=== PATIENT | female | born 1950 | race Caucasian/White ===

== ENCOUNTER 2023-02-17 10:00 | Outpatient (OUT) | payer MEDICARE, SELFPAY ==
[2023-02-17 10:20] LABS: Basophils Absolute Auto 0.1 10^3/uL (0.0-0.1); Basophils Percent Auto 1.1 % (0.2-2.0); Eosinophils Absolute Auto 0.3 10^3/uL (0.0-0.7); Eosinophils Percent Auto 3.4 % (0.9-7.0); Hematocrit 40.2 % (36.0-48.0); Hemoglobin 13.3 g/dL (12.0-16.0); Immature Granulocytes Abs Auto 0.01 10^3/uL (0.00-0.03); Immature Granulocytes Pct Auto 0.1 % (0.0-0.5); Lymphocytes Absolute Auto 2.1 10^3/uL (1.2-3.8); Lymphocytes Percent Auto 28.1 % (20.5-60.0); Mean Corpuscular HGB Conc 33.1 g/dL (29.9-35.2); Mean Corpuscular Hemoglobin 28.1 pg (26.7-34.0); Mean Platelet Volume 11.1 fL (9.5-13.5); Monocytes Absolute Auto 0.6 10^3/uL (0.3-0.8); Monocytes Percent Auto 8.2 % (1.7-12.0); Neutrophils Absolute Auto 4.3 10^3/uL (1.4-6.5); Neutrophils Percent Auto 59.1 % (43.0-75.0); Platelet Count 210 10^3/uL (150-450); Red Blood Count 4.73 10^6/uL (4.20-5.40); Red Cell Distribution Width 13.9 % (11.0-15.0); White Blood Count 7.3 10^3/uL (4.0-11.0)
[2023-02-17 10:25] LABS: Estimated Average Glucose 117 mg/dL; Glycohemoglobin A1C 5.7 % (4.5-6.2)
[2023-02-17 11:47] LABS: Alanine Aminotransferase 20 U/L (14-59); Albumin Level 3.5 g/dL (3.4-5.0); Alkaline Phosphatase 88 U/L (46-116); Aspartate Amino Transferase 13 U/L (15-37); BUN Creatinine Ratio 22.4; Bilirubin Total 0.7 mg/dL (0.2-1.0); Calcium 9.3 mg/dL (8.5-10.1); Carbon Dioxide 29.8 mmol/L (21.0-32.0); Chloride 107 mmol/L (98-107); Chol HDL Ratio 3.2; Cholesterol 193 mg/dL (<=200); Estimated GFR (African America >60 (>=60); Estimated GFR (Non-African Ame >60 (>=60); Globulin 3.5 g/dL; Glucose 108 mg/dL (74-106); HDL Cholesterol 61 mg/dL (40-60); Potassium 3.8 mmol/L (3.5-5.1); Sodium 144 mmol/L (136-145); Thyroid Stimulating Hormone 0.772 uIU/mL (0.358-3.740); Triglycerides 137 mg/dL (<=150); VLDL CHOLESTEROL 27.4 mg/dL
== END 2023-02-17 10:01 | disposition home or self-care (01) ==
LOC: LAB 10:01
PROVIDERS: PCP Internal Medicine; Visit Provider Internal Medicine
DX: R53.83 Other fatigue (principal); I10 Essential (primary) hypertension; Z79.899 Other long term (current) drug therapy; E78.00 Pure hypercholesterolemia, unspecified; R73.01 Impaired fasting glucose
CPT/HCPCS: 36415; 80053; 80061; 82607; 83036; 84443; 85025

== ENCOUNTER 2023-03-11 09:25 | Outpatient (OUT) | payer MEDICARE, SELFPAY ==
--- OUTSIDE RECORDS SUMMARY | 2023-03-11 09:40 | XMS_ITS | CCD ---
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 Role Phone VITALIY HEARN Primary Care Physician REQUEST, DR BALDWIN LISTED Admitting Unavaila ble REQUEST, DR BALDWIN LISTED Consulting Unavaila ble REQUEST, DR BALDWIN LISTED Attending Unavaila ble BALL, DR EVANS Primary Care Unavailable MARC, DR EVANS Consulting Unavailable MARC, DR EVANS Attending Unavailable MARC, DR EVANS Admitting Unavailable MARC, DR EVANS Primary Care Unavailable Vitaliy Hearn Unavailable Caprice Moses Unavailable Colt Noland Referring Unavailable Colt Noland Attending Unavailable Colt Noland Admitting Unavailable Allergies Allergy Classification Reported Allergen(s) Allergy Type Date of Onset Reaction(s) Facility (1 source) No Known Medication Allergies; Translations: [No Known Medication Allergies] Propensity to adverse reactions (disorder) [facility] Repository Medications Current Medications Medication Drug Class(es) Dates Sig (Normalized) Sig (Original) amLODIPine 5 mg oral tablet (6 sources) Dihydropyridine Calcium Channel Kat Start: 08-22-2021 take 1 tablet by mouth every twenty-four hours amLODIPine Besylate 5 MG 1 tablet Orally Once a day Aug, Active aspirin 81 mg delayed release oral tablet (6 sources) Platelet Aggregation Inhibitor, Nonsteroidal Anti-inflammatory Drug Start: 02-11-2022 Aspirin Adult Low Dose 81 MG aspirin( 81mg oral 1 daily ) Active -Hx Entry Oral daily for 0 Feb, Active atorvastatin 20 mg oral tablet (6 sources) HMG-CoA Reductase Inhibitor Start: 12-12-2021 take 1 tablet by mouth once daily in the evening atorvastatin 20mg atorvastatin 20mg, 1 (one) Tablet Tablet daily in evening # 90, 12/12/2021, Ref. x3. Active oral daily in evening for 0 *Reorder from [employer] for eRx and Interaction Alerts* Dec, Active carvedilol 12.5 mg oral tablet (6 sources) alpha-Adrenergic Kat, beta-Adrenergic Kat Start: 08-29-2021 take 1 tablet by mouth every twelve hours Carvedilol 12.5 MG 1 tablet with food Orally Twice a day Aug, Active cholecalciferol 0.05 mg oral tablet (4 sources) Vitamin D Vitamin D 50 MCG (1999 UT) 2 Orally Once a day Active PARoxetine mesylate 30 mg oral tablet (6 sources) Serotonin Reuptake Inhibitor Start: 02-11-2022 PARoxetine HCl 30mg PARoxetine HCL( 30mg oral 1 daily ) Active -Hx Entry oral daily for 0 *Pick strength-form from [employer] for eRX* Feb, Active take 1 tablet by aravind th every twenty-four hours PARoxetine HCl 30 MG 1 tablet in the morning Orally Once a day Active Problems Active Problems Problem Classification Problem Date Documented Date Episodic/Chronic Anxiety disorders (7 sources) Generalized anxiety disorder; Translations: [Generalized anxiety disorder] Onset: 06-09-2018 Chronic Diabetes mellitus without complication (1 source) Impaired fasting glucose Episodic Disorders of lipid metabolism (12 sources) Familial hypercholesterolemia; Translations: [Hypercholesterolemia ] Onset: 01-01-2015 Chronic Esophageal disorders (2 sources) Gastro-esophageal reflux disease with esophagitis; Translations: [Gastro-esophageal reflux disease with esophagitis, without bleeding] Onset: 06-10-2017 Chronic Essential hypertension (14 sources) Essential (primary) hypertension; Translations: [Essential hypertension] Onset: 01-01-2015 Chronic Immunizations and screening for infectious disease (2 sources) Vaccination given; Translations: [Encounter for immunization] Episodic Malaise and fatigue (3 sources) Malaise and fatigue; Translations: [Other malaise and fatigue] Onset: 01-14-2018 Episodic Nutritional deficiencies (6 sources) Vitamin D deficiency; Translations: [Vitamin D deficiency, unspecified] Chronic Osteoarthritis (15 sources) Primary gonarthrosis, bilateral; Translations: [Bilateral primary osteoarthritis of knee] Onset: 01-14-2018 Chronic Other aftercare (2 sources) Other skilled nursing (current) drug therapy; Translations: [OTH INTERMEDIATE CURRENT DRUG THERAPY] Onset: 02-17-2022 Episodic Other aftercare (2 sources) Long-term current use of drug therapy; Translations: [Other terminal block assembler (current) drug therapy] Episodic Other circulatory disease (2 sources) Raynaud's disease; Translations: [Raynaud's syndrome without gangrene] Chronic Other circulatory disease (2 sources) Peripheral vascular disease; Translations: [Other specified peripheral vascular diseases] Onset: 05-25-2018 Chronic Other circulatory disease (2 sources) Arteritis; Translations: [Arteritis, unspecified] Onset: 05-27-2018 Chronic Other congenital anomalies (2 sources) Congenital spondylolysis of lumbosacral region; Translations: [Congenital spondylolysis, lumbosacral region] Onset: 07-10-2017 Chronic Other connective tissue disease (3 sources) History of total replacement of right hip joint; Translations: [Presence of right artificial hip joint] Chronic Other connective tissue disease (1 source) Presence of right artificial hip joint Chronic Other injuries and conditions due to external causes (2 sources) History of fall; Translations: [History of falling] Episodic Other non-traumatic joint disorders (2 sources) Lower limb joint arthritis; Translations: [Osteoarthrosis, unspecified whether generalized or localized, lower leg] Onset: 01-01-2015 Chronic Other nutritional; endocrine; and metabolic disorders (6 sources) Body mass index 30+ - obesity; Translations: [Body mass index (BMI) 30.0-30.9, adult] Onset: 01-08-2016 Chronic Other nutritional; endocrine; and metabolic disorders (4 sources) Obesity caused by energy imbalance; Translations: [Other obesity due to excess calories] Chronic Other nutritional; endocrine; and metabolic disorders (1 source) Other obesity due to excess calories Chronic Other nutritional; endocrine; and metabolic disorders (1 source) Body mass index (BMI) 30.0-30.9, adult Chronic Other nutritional; endocrine; and metabolic disorders (2 sources) Obesity; Translations: [Obesity, unspecified] Chronic Other nutritional; endocrine; and metabolic disorders (2 sources) Simple obesity ; Translations: [Other obesity due to excess calories] Onset: 01-08-2016 Chronic Other nutritional; endocrine; and metabolic disorders (2 sources) Obese class I; Translations: [Body mass index 34.0-34.9, adult] Onset: 01-08-2016 Chronic Other nutritional; endocrine; and metabolic disorders (4 sources) Hyperuricemia; Translations: [Hyperuricemia without signs of inflammatory arthritis and tophaceous disease] Episodic Other nutritional; endocrine; and metabolic disorders (2 sources) Hyperuricemia without signs of inflammatory arthritis and tophaceous disease; Translations: [Hyperuricemia without signs of inflammatory arthritis and tophaceous disease] Episodic Other nutritional; endocrine; and metabolic disorders (2 sources) Overweight; Translations: [Overweight] Episodic Other screening for suspected conditions (not mental disorders or infectious disease) (2 sources) Encounter for screening for diseases of the blood and blood-forming organs and certain disorders involving the immune mechanism; Translations: [Encntr screen for dis of the bld/bld-form org/immun mechnsm] Episodic Other upper respiratory disease (2 sources) Seasonal allergic rhinitis; Translations: [Other seasonal allergic rhinitis] Onset: 06-10-2017 Chronic Superficial injury; contusion (2 sources) Contusion of right hip, initial encounter Episodic Unclassified (2 sources) Long-term current use of drug therapy; Translations: [Long-term (current) use of other medications] Onset: 01-13-2017 Past or Other Problems Problem Classification Problem Date Documented Date Episodic/Chronic Acute posthemorrhagic anemia (2 sources) Acute posthemorrhagic anemia; Translations: [Acute posthemorrhagic anemia] Resolved: 07-04-2019 Episodic Other connective tissue disease (2 sources) Trochanteric bursitis of right hip; Translations: [Trochanteric bursitis, right hip] Onset: 06-10-2017 Episodic Other lower respiratory disease (2 sources) Cyanosis; Translations: [Cyanosis] Onset: 05-25-2018 Episodic Other nervous system disorders (2 sources) Paresthesia; Translations: [Paresthesia of skin] Onset: 06-10-2017 Episodic Other non-traumatic joint disorders (2 sources) Arthralgia of the pelvic region and thigh; Translations: [Pain in joint, pelvic region and thigh] Onset: 06-10-2017 Episodic Other non-traumatic joint disorders (2 sources) Arthralgia of the lower leg; Translations: [Pain in joint, lower leg] Onset: 01-01-2015 Episodic Residual codes; unclassified (2 sources) Requires influenza virus vaccination; Translations: [Need for prophylactic vaccination and inoculation, Influenza] Onset: 01-14-2018 Episodic Results Test Name Value Interpretation Reference Range Facility Consent for Treatmenton Consent for Treatment [id number] .[id number]:127 Normal [facility] MA Mamm Screen w/CAD if perf and 3D Bilon 12-08-2022 MA Mamm Screen w/CAD if perf and 3D Gerard Exam Date/Time: 12/08/2022 08:30 EDT Reason for Exam: Z12.31 Report IMPRESSION: BIRADS 1 NEGATIVE, NORMAL INTERVAL FOLLOW-UP Follow-up: 12 MONTH RECALL Dense Breast: No Scattered tissue EXAM: MA Mamm Screen w/CAD if perf and 3D Gerard DATE: 12/08/2022 7:25 AM CLINICAL HISTORY: Z12.31. COMPARISONS: May 28, 2018 through November 21, 2021. TECHNIQUE: Routine full-field digital mammograms and 3D breast tomosynthesis of both breasts were obtained. FINDINGS: Scattered fibroglandular densities are present with stable asymmetry. There are no developing masses, suspicious microcalcifications, or areas of architectural distortion identified on the current study. No significant changes are identified from the prior studies, given differences in technique and positioning. CAD analysis was performed and used in the interpretation. Board Certified Radiologists. Accredited by the ACR and FDA. MAMMOGRAPHY IS VERY IMPORTANT TO YOUR HEALTH. THE CURRENT [place] [employer] GUIDELINES RECOMMENDS ANNUAL MAMMOGRAPHY BEGINNING AT AGE 40. THIS FACILITY UTILIZES A REMINDER SYSTEM TO ENSURE ALL PATIENTS RECEIVE REMINDER NOTIFICATIONS AT THE APPROPRIATE TIME BASED ON THE RECOMMENDATIONS OF THIS EXAM. Report Ordering Provider: Colt Noland FINAL REPORT Dictated: 12/08/2022 6:23 pm Ruth Mendez Signed (Electronic Signature): 12/08/2022 6:23 pm Signed by: Ruth Mendez Transcribed by: LINDA Technologist: [facility] Assessment: BI-RADS Category 1-Negative Recommendation: Normal interval follow-up Normal [facility] Physician Orderon 11-20-2022 Physician Order [id number] .[id number]:127 Normal [facility] GLYCOHEMOGLOBIN A1Con 2022 ADA RECOMMENDATION SEE BELOW Normal [facility] Comment on above: Result Comment: ADA RECOMMENDED LIMIT 4.0 - 6.0 ADA THERAPEUTIC TARGET < 7.0 ACTION SUGGESTED > 7.0 Performed By: #### D ATA1C #### [facility] [address] [place] [address] Dr. Abimael Yu Glucose [Mass/Vol] 114 mg/dL Normal [facility] Comment on above: Performed By: #### D ATA1C #### [facility] [address] [place] [address] Dr. Abimael Yu HbA1c (Bld) [Mass fraction] 5.6 % Normal 4.5-6.2 [facility] Comment on above: Performed By: #### D ATA1C #### [facility] [address] [place] [address] Dr. Abimael Yu CBC AUTO DIFFon 02-13-2022 BASO # 0.1 103/ul Normal 0.0-0.1 [facility] Comment on above: Performed By: #### C BC #### [facility] [address] [place] [address] Dr. Abimael Yu Basophils/100 WBC (Bld) 1.1 % Normal 0.2-2.0 [facility] Comment on above: Performed By: #### C BC #### [facility] [address] [place] [address] Dr. Abimael Yu EO # 0.3 103/ul Normal 0.0-0.7 [facility] Comment on above: Performed By: #### C BC #### [facility] [address] [place] [address] Dr. Abimael Yu Eosinophils/100 WBC (Bld) 4.0 % Normal 0.9-7.0 [facility] Comment on above: Performed By: #### C BC #### [facility] [address] [place] [address] Dr. Abimael Yu Erythrocyte distribution width (RBC) [Ratio] 13.4 % Normal 11.0-15.0 [facility] Comment on above: Performed By: #### C BC #### [facility] [address] [place] [address] Dr. Abimael Yu Hematocrit (Bld) [Volume fraction] 42.3 % Normal 36.0-48.0 [facility] Comment on above: Performed By: #### C BC #### [facility] [address] [address] [address] Abimael Yu Hemoglobin (Bld) [Mass/Vol] 14.5 g/dL Normal 12.0-16.0 [facility] Comment on above: Performed By: #### C BC #### [facility] [address] [address] [address] Abimael Yu IG # 0.01 10e3/ul Normal 0.00-0.03 [facility] Comment on above: Performed By: #### C BC #### [facility] [address] [place] [address] Dr. Abimael Yu IG % 0.2 % Normal 0.0-0.5 [facility] Comment on above: Performed By: #### C BC #### [facility] [address] [place] [address] Dr. Abimael Yu LYMPH # 1.9 103/ul Normal 1.2-3.8 [facility] Comment on above: Performed By: #### C BC #### [facility] [address] [place] [address] Dr. Abimael Yu Lymphocytes/100 WBC (Bld) 30.8 % Normal 20.5-60.0 [facility] Comment on above: Performed By: #### C BC #### [facility] [address] [place] [address] Dr. Abimael Yu MANUAL DIFF REQ NO Normal [facility] Comment on above: Performed By: #### C BC #### [facility] [address] [place] [address] Dr. Abimael Yu MCH (RBC) [Entitic mass] 30.0 pg Normal 26.7-34.0 [facility] Comment on above: Performed By: #### C BC #### [facility] [address] [place] [address] Dr. Abimael Yu MCHC (RBC) [Mass/Vol] 34.3 g/dL Normal 29.9-35.2 [facility] Comment on above: Performed By: #### C BC #### [facility] [address] [address] [address] Abimael Yu MCV (RBC) [Entitic vol] 87.4 fL Normal 81.0-99.0 [facility] Comment on above: Performed By: #### C BC #### [facility] [address] [address] [address] Abimael Yu MONO # 0.4 103/ul Normal 0.3-0.8 [facility] Comment on above: Performed By: #### C BC #### [facility] [address] [address] [address] Abimael Yu Monocytes/100 WBC (Bld) 6.3 % Normal 1.7-12.0 [facility] Comment on above: Performed By: #### C BC #### [facility] [address] [place] [address] Dr. Abimael Yu NEUT # 3.6 103/ul Normal 1.4-6.5 [facility] Comment on above: Performed By: #### C BC #### [facility] [address] [place] [address] Dr. Abimael Yu Neutrophils/100 WBC (Bld) 57.6 % Normal 43.0-75.0 [facility] Comment on above: Performed By: #### C BC #### [facility] [address] [place] [address] Dr. Abimael Yu Platelet mean volume (Bld) [Entitic vol] 10.9 fL Normal 9.5-13.5 [facility] Comment on above: Performed By: #### C BC #### [facility] [address] [place] [address] Dr. Abimael Yu PLT 202 103/ul Normal 150-450 [facility] Comment on above: Performed By: #### C BC #### [facility] [address] [place] [address] Dr. Abimael Yu RBC 4.84 106/ul Normal 4.20-5.40 [facility] Comment on above: Performed By: #### C BC #### [facility] [address] [address] [address] Abimael Yu WBC 6.2 103/ul Normal 4.0-11.0 [facility] Comment on above: Performed By: #### C BC #### [facility] [address] [address] [address] Abimael Yu LIPID PROFILEon 02-13-2022 CHOL-HDL RATIO NORM SEE BELOW Normal [facility] Comment on above: Result Comment: 3.3 - 4.4 LOW RISK 4.4 - 7.1 AVERAGE RISK 7.1 - 11.0 MODERATE RISK >11.0 HIGH RISK Performed By: #### C MP, LIPID #### [facility] [address] [address] [address] Abimael Yu Cholesterol [Mass/Vol] 153 mg/dL Normal <=200 [facility] Comment on above: Performed By: #### C MP, LIPID #### [facility] [address] [address] [address] Abimael Yu Cholesterol in HDL [Mass/Vol] 55 mg/dL Normal 40-60 [facility] Comment on above: Performed By: #### C MP, LIPID #### [facility] [address] [address] [address] Abimael Yu Cholesterol in LDL [Mass/Vol] 66.2 mg/dL Normal [facility] Comment on above: Performed By: #### C MP, LIPID #### [facility] [address] [address] [address] Abimael Yu Cholesterol.total/Cho lesterol in HDL [Mass ratio] 2.8 {ratio} Normal [facility] Comment on above: Performed By: #### C MP, LIPID #### [facility] [address] [address] [address] Abimael Yu HDL NORMAL > or = 60 mg/dl - LO W CARDIOVASCULAR RISK <40 mg/dl - HIGH CARDIOVASCULAR RISK Normal [facility] Comment on above: Performed By: #### C MP, LIPID #### [facility] [address] [address] [address] Abimael Yu LDL CALC NORMAL SEE BELOW Normal [facility] Comment on above: Result Comment: <100 mg/dl OPTIMAL 100 - 129 mg/dl NEAR OR ABOVE OPTIMAL 130 - 159 mg/dl BORDERLINE HIGH 160 - 189 mg/dl HIGH >190 mg/dl VERY HIGH Performed By: #### C MP, LIPID #### [facility] [address] [address] [address] Abimael Yu Triglyceride [Mass/Vol] 159 mg/dL Critically high <=150 [facility] Comment on above: Performed By: #### C MP, LIPID #### [facility] [address] [address] [address] Abimael Yu VLDL CALC 31.8 mg/dL Normal [facility] Comment on above: Performed By: #### C MP, LIPID #### [facility] [address] [address] [address] Abimael Yu PROF 14(COMP METB)on 022 Albumin [Mass/Vol] 3.4 g/dL Normal 3.4-5.0 [facility] Comment on above: Performed By: #### C MP, LIPID #### [facility] [address] [address] [address] Abimael Yu Albumin/Globulin [Mass ratio] 1.0 {ratio} Normal [facility] Comment on above: Performed By: #### C MP, LIPID #### [facility] [address] [place] [address] Dr. Abimael Yu ALP [Catalytic activity/Vol] 111 U/L Normal 46-116 [facility] Comment on above: Performed By: #### C MP, LIPID #### [facility] [address] [place] [address] Dr. Abimael Yu ALT [Catalytic activity/Vol] 32 U/L Normal 14-59 [facility] Comment on above: Performed By: #### C MP, LIPID #### [facility] [address] [place] [address] Dr. Abimael Yu Anion gap [Moles/Vol] 8.1 mmol/L Normal [facility] Comment on above: Performed By: #### C MP, LIPID #### [facility] [address] [address] [address] Abimael Yu AST [Catalytic activity/Vol] 14 U/L Critically low 15-37 [facility] Comment on above: Performed By: #### C MP, LIPID #### [facility] [address] [place] [address] Dr. Abimael Yu Bilirubin [Mass/Vol] 0.6 mg/dL Normal 0.2-1.0 [facility] Comment on above: Performed By: #### C MP, LIPID #### [facility] [address] [place] [address] Dr. Abimael Yu Calcium [Mass/Vol] 9.3 mg/dL Normal 8.5-10.1 [facility] Comment on above: Performed By: #### C MP, LIPID #### [facility] [address] [place] [address] Dr. Abimael Yu Chloride [Moles/Vol] 107 mmol/L Normal 98-107 [facility] Comment on above: Performed By: #### C MP, LIPID #### [facility] [address] [place] [address] Dr. Abimael Yu CO2 [Moles/Vol] 29.0 mmol/L Normal 21.0-32.0 [facility] Comment on above: Performed By: #### C MP, LIPID #### [facility] [address] [place] [address] Dr. Abimael Yu Creatinine [Mass/Vol] 0.64 mg/dL Normal 0.55-1.02 [facility] Comment on above: Performed By: #### C MP, LIPID #### [facility] [address] [place] [address] Dr. Abimael Yu EGFR-AF [place] >60 Normal >=60 [facility] Comment on above: Performed By: #### C MP, LIPID #### [facility] [address] [place] [address] Dr. Abimael Yu EGFR-NON AF [place] >60 Normal >=60 [facility] Comment on above: Performed By: #### C MP, LIPID #### [facility] [address] [place] [address] Dr. Abimael Yu Globulin (S) [Mass/Vol] 3.3 g/dL Normal [facility] Comment on above: Performed By: #### C MP, LIPID #### [facility] [address] [place] [address] Dr. Abimael Yu Glucose [Mass/Vol] 118 mg/dL Critically high 74-106 [facility] Comment on above: Performed By: #### C MP, LIPID #### [facility] [address] [place] [address] Dr. Abimael Yu Potassium [Moles/Vol] 4.1 mmol/L Normal 3.5-5.1 [facility] Comment on above: Performed By: #### C MP, LIPID #### [facility] [address] [place] [address] Dr. Abimael Yu Protein [Mass/Vol] 6.7 g/dL Normal 6.4-8.2 [facility] Comment on above: Performed By: #### C MP, LIPID #### [facility] [address] [place] [address] Dr. Abimael Yu Sodium [Moles/Vol] 140 mmol/L Normal 136-145 [facility] Comment on above: Performed By: #### C MP, LIPID #### [facility] [address] [place] [address] Dr. Abimael Yu Urea nitrogen [Mass/Vol] 14.0 mg/dL Normal 7.0-18.0 [facility] Comment on above: Performed By: #### C MP, LIPID #### [facility] [address] [place] [address] Dr. Abimael Yu Urea nitrogen/Creatinine [Mass ratio] 21.9 mg/mg Normal [facility] Comment on above: Performed By: #### C MP, LIPID #### [facility] [address] [place] [address] Dr. Abimael Yu Vital Signs Date Time Vital Sign Value Performing Clinician Facility 10-14-2022 09:45-0400 Body height 157.48 cm Vitaliy Ball Other [facility] Other 10-14-2022 09:45-0400 Body mass index (BMI) [Ratio] 31.27 kg/m2 Vitaliy Ball Other [facility] Other 10-14-2022 09:45-0400 Body weight 77.57 kg Vitaliy Ball Other [facility] Other 10-14-2022 09:45-0400 Diastolic blood pressure 78 mm[Hg] Vitaliy Ball Other [facility] Other 10-14-2022 09:45-0400 Respiratory rate 12 /min Vitaliy Ball Other [facility] Other 10-14-2022 09:45-0400 Systolic blood pressure 118 mm[Hg] Vitaliy Ball Other [facility] Other 09-03-2022 11:30-0400 Body height 157.48 cm Vitaliy Ball Other [facility] Other 09-03-2022 11:30-0400 Body mass index (BMI) [Ratio] 31.6 kg/m2 Vitaliy Ball Other [facility] Other 09-03-2022 11:30-0400 Body weight 78.38 kg Vitaliy Ball Other [facility] Other 09-03-2022 11:30-0400 Diastolic blood pressure 80 mm[Hg] Vitaliy Ball Other [facility] Other 09-03-2022 11:30-0400 Respiratory rate 12 /min Vitaliy Ball Other [facility] Other 09-03-2022 11:30-0400 Systolic blood pressure 130 mm[Hg] Vitaliy Ball Other [employer] Other Encounters Encounter Date Encounter Type Care Provider Facility Start: 02-16-2023 End: 02-16-2023 ambulatory Vitaliy Hearn Other [employer] Other Start: 02-16-2023 Office outpatient vi sit 15 minutes Vitaliy Marc [facility] Start: 12-08-2022 End: 12-09-2022 ambulatory Colt Noland Facility:[facility] [place] Start: 12-08-2022 End: 12-08-2022 Patient encounter procedure Colt Bolanos Nuz[facility] Start: 11-28-2022 End: 11-28-2022 ambulatory Caprice Moses Other [employer] Other Start: 11-28-2022 Telephone encounter Caprice Moses [facility] Start: 10-14-2022 End: 10-14-2022 ambulatory Vitaliy Hearn Other [employer] Other Start: 10-14-2022 Office outpatient vi sit 15 minutes Vitaliy Hearn [facility] Start: 09-03-2022 End: 09-03-2022 ambulatory Vitaliy Hearn Other [employer] Other Start: 09-03-2022 Office outpatient vi sit 25 minutes Vitaily Hearn [facility] Start: 05-08-2022 End: 05-09-[address] BALDWIN LISTED REQUEST Facility:[facility] Start: 02-13-2022 End: 02-14-[address] VITALIY HEARN Facility:[facility] Start: 02-11-2022 Adult health examination Caprice Moses Other [employer] Other Start: 11-21-2021 End: 11-21-2021 Patient encounter procedure Colt Bolanos Nuzhat [facility] Procedures Date Procedure Procedure Detail Performing Clinician Start: 06-30-2018 Total replacement of hip Caprice Moses Other Start: 06-09-2018 Preoperative cardiov ascular examination Caprice Moses Other Start: 01-01-2015 General examination of patient Caprice Moses Other Depression screening Caprice Moses Other Screening for malign ant neoplasm of colon Caprice Moses Other Immunizations Immunization Date Immunization Notes Care Provider Fa cility 12-18-2021 COVID-19 Vaccine Pfi zer - Documentation Purposes Only Caprice Moses Other [employer] Other 12-18-2021 influenza virus vaccine, split virus (incl. purified surface antigen) Caprice Moses Other [employer] Other 09-02-2021 COVID-19 Vaccine Pfi zer - Documentation Purposes Only Caprice Moses Other [employer] Other 02-06-2021 COVID-19 Vaccine Pfi zer - Documentation Purposes Only Caprice Moses Other [employer] Other 02-04-2021 influenza virus vaccine, split virus (incl. purified surface antigen) Caprice Moses Other [employer] Other 05-30-2020 COVID-19, mRNA, LNP- S, PF, 30 mcg/0.3 mL dose Docur[facility] Comment on above: Reason for Medicatio n: Prophylaxis Reason for Medicatio n: Prophylaxis 05-02-2020 COVID-19, mRNA, LNP- S, PF, 30 mcg/0.3 mL dose Colt On-[facility] Comment on above: Reason for Medicatio n: Prophylaxis Reason for Medicatio n: Prophylaxis 12-04-2019 influenza virus vaccine, split virus (incl. purified surface antigen) Caprice Moses Other [employer] Other 01-14-2018 influenza virus vaccine, split virus (incl. purified surface antigen) Caprice Aurelia Other [employer] Other 01-13-2017 influenza virus vaccine, split virus (incl. purified surface antigen) Caprice Aurelia Other [employer] Other 01-13-2017 pneumococcal polysaccharide vaccine, 23 valent Capricemichael Moses Other [employer] Other 01-08-2016 pneumococcal conjuga te vaccine, 13 valent Capricemichael Moses Other [employer] Other 01-08-2016 pneumococcal Conjuga te, unspecified formulation; Translations: [Need for prophylactic vaccination against Streptococcus pneumoniae (pneumococcus)] Caprice Moses Other [employer] Other Payers Date Payer Category Payer Medicare [id number] 1959 Self-pay 1950 Unknown [id number] 1950 Unknown [id number] Unknown [id number] Social History Date Type Detail Facility No Smoking Status Entered [facility] Female [facility] Tobacco smoking status No Smoking Status Entered [facility] Evaluation note 02-16-2023 Note Date & Type Note Facility 02-16-2023 Evaluation note Encounter Date Diagnosis Assessment Notes Feb, Primary hypertension (ICD-10 - I10) This patient is instructed to consume a healthy, low-fat, low-salt diet. They are also encouraged to continue exercise to achieve/maintain a normal BMI. Feb, Hypercholesteremia (ICD-10 - E78.00) Instructed on diet and exercise with continued statin therapy.Discussed the beneficial effects of lowering cholesterol in reducing the risk for cerebrovascular and cardiovascular disease. Feb, IFG (impaired fasting glucose) (ICD-10 - R73.01) Healthy diet and exercise Encouraged to lose weigtht. Feb, Fatigue, unspecified type (ICD-10 - R53.83) r/o metabolic abnormalities: - check BS, A1C, B12, H/H, TSH Feb, High risk medication use (ICD-10 - Z79.899) Check hepatic enzymes, CBC [employer] Other Evaluation note 11-28-2022 Note Date & Type Note Facility 11-28-2022 Evaluation note Encounter Date Diagnosis Assessment Notes Nov, Hypercholesteremia (ICD-10 - E78.00) [employer] Other Evaluation note 10-14-2022 Note Date & Type Note Facility 10-14-2022 Evaluation note Encounter Date Diagnosis Assessment Notes Oct, Contusion of right hip, initial encounter (ICD-10 - S70.01XA) Ice/heat and padding. Monitor for any increase in size or bruising. Activity as tolerated Oct, Hematoma of right hip, initial encounter (ICD-10 - S70.01XA) Ice/heat as needed. 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 They are also encouraged to continue exercise to achieve/maintain a normal BMI. Aug, Hypercholesteremia (ICD-10 - E78.00) Instructed on diet and exercise with continued statin therapy.Discussed the beneficial effects of lowering cholesterol in reducing the risk for cerebrovascular and cardiovascular disease. Aug, Primary osteoarthritis of both knees (ICD-10 - M17.0) Quad exercises, ice/heat and weight loss. Avoid squatting or kneeling Continue f/u w/ Ortho for Synvisc injections Aug, LYNNE (generalized anxiety disorder) (ICD-10 - F41.1) Healthy diet, exercise and keep active. Recommend continuing SSRI Not experiencing any significant ADR w/ treatment Aug, Other obesity due to excess calories (ICD-10 - E66.09) This patient has been instructed on a low-fat, high-fiber diet. They are instructed to reduce calories, portion sizes and snacks. It is recommended that they exercise for 30 minutes, 3-5 times weekly. Aug, Body mass index [BMI] 30.0-30.9, adult (ICD-10 - Z68.30) [facility] Other Evaluation + Plan note Note Date & Type Note Facility Evaluation + Plan note No data available for this section [facility] History general Narrative - Reported Note Date & Type Note Facility History general Narrative - Reported Type Medical History Primary hypertension Medical History Hypercholesteremia Medical History Primary osteoarthrit is of both knees Medical History Hyperuricemia Medical History Vitamin D deficiency Surgical History ARTHROSCOPY LEFT SHOULDER 2004, 2006 Surgical History COLONOSCOPY 2008 Surgical History RIGHT SHARI 2019 Hospitalization History SEE SURGICAL HX [employer] Other History general Narrative - Reported Note Date & Type Note Facility History general Narrative - Reported Type Medical History Primary hypertension Medical History Hypercholesteremia Medical History Primary osteoarthrit is of both knees Medical History Hyperuricemia Medical History Vitamin D deficiency Medical History Arthritis of shoulde r region, left Surgical History ARTHROSCOPY LEFT SHOULDER 2004, 2006 Surgical History COLONOSCOPY 2008 Surgical History RIGHT SHARI 2019 Hospitalization History SEE SURGICAL HX [facility] Other Hospital Discharge instructions Note Date & Type Note Facility Hospital Discharge instructions No data available for this section [facility] Progress note Note Date & Type Note Facility Progress note No data available for this section [facility] Summary Purpose Family History No Family History Records Found No data available for this section No Family History Records Found Advance Directives No Advanced Directives Records FoundNo Advanced Directives Records Found Additional Source Comments Care Team (unrecognized sect ion and content) Personnel Name: VITALIY HEARN DO Address: [address], [place] [id number]- Personnel Name: VITALIY HEARN DO Address: Address: [address] [facility] [place] [address]- INFORMATION SOURCE (unrecogn ized section and content) DATE CREATED AUTHOR 05/09/2022 [facility] DATE CREATED AUTHOR AUTHOR'S ORGANROSE ATION 12/12/2022 [facility] REASON FOR VISIT (unrecogniz ed section and content) 6 MONTH FOLLOW UPfeel bro meeks egRefillCOVID Negative- Sinuses [phone] FOR RECORDS PERTAINING TO PATIENTS WHO ARE OR HAVE BEEN ENROLLED IN A CHEMICAL DEPENDENCY/SUBSTANCEABUSE PROGRAM, SOME INFORMATION MAY BE OMITTED. This clinical summary was aggregated from multiple sources. Caution should be exercised in using it in the provision of clinical care. This summary normalizes information from multiple sources, and as a consequence, information in this document may materially change the coding, format and clinical context of patient data. In addition, data may be omitted in some cases. CLINICAL DECISIONS SHOULD BE BASED ON THE PRIMARY CLINICAL RECORDS. [employer] provides no warranty or guarantee of the accuracy or completeness of information in this document.
[2023-03-11 10:08] LABS: Basophils Percent Auto 0.7 % (0.2-2.0); Eosinophils Absolute Auto 0.3 10^3/uL (0.0-0.7); Hematocrit 40.7 % (36.0-48.0); Hemoglobin 13.1 g/dL (12.0-16.0); Immature Granulocytes Abs Auto 0.01 10^3/uL (0.00-0.03); Immature Granulocytes Pct Auto 0.2 % (0.0-0.5); Lymphocytes Absolute Auto 1.7 10^3/uL (1.2-3.8); Lymphocytes Percent Auto 28.9 % (20.5-60.0); Mean Corpuscular HGB Conc 32.2 g/dL (29.9-35.2); Mean Corpuscular Hemoglobin 27.3 pg (26.7-34.0); Mean Corpuscular Volume 84.8 fL (81.0-99.0); Mean Platelet Volume 11.8 fL (9.5-13.5); Monocytes Absolute Auto 0.6 10^3/uL (0.3-0.8); Neutrophils Absolute Auto 3.2 10^3/uL (1.4-6.5); Neutrophils Percent Auto 55.2 % (43.0-75.0); Platelet Count 193 10^3/uL (150-450); Red Cell Distribution Width 14.2 % (11.0-15.0); White Blood Count 5.8 10^3/uL (4.0-11.0)
[2023-03-11 10:23] LABS: Estimated Average Glucose 117 mg/dL; Glycohemoglobin A1C 5.7 % (4.5-6.2)
[2023-03-11 11:15] LABS: Alanine Aminotransferase 23 U/L (14-59); Anion Gap 11.7; BUN Creatinine Ratio 15.7; Calcium 9.6 mg/dL (8.5-10.1); Carbon Dioxide 28.8 mmol/L (21.0-32.0); Chloride 106 mmol/L (98-107); Chol HDL Ratio 2.4; Cholesterol 125 mg/dL (<=200); Estimated GFR (African America >60 (>=60); Estimated GFR (Non-African Ame >60 (>=60); Glucose 114 mg/dL (74-106); HDL Cholesterol 53 mg/dL (40-60); Potassium 3.5 mmol/L (3.5-5.1); Sodium 143 mmol/L (136-145); Thyroid Stimulating Hormone 0.805 uIU/mL (0.358-3.740); Triglycerides 125 mg/dL (<=150)
== END 2023-03-11 09:26 | disposition home or self-care (01) ==
LOC: LAB 09:26
PROVIDERS: PCP Internal Medicine; Visit Provider Internal Medicine
DX: E78.00 Pure hypercholesterolemia, unspecified (principal); I10 Essential (primary) hypertension; R73.01 Impaired fasting glucose; Z79.899 Other long term (current) drug therapy; R53.83 Other fatigue
CPT/HCPCS: 36415; 80048; 80061; 83036; 84443; 84460; 85025

== ENCOUNTER 2024-03-14 09:22 | Outpatient (OUT) | payer MEDICARE, SELFPAY ==
[2024-03-14 09:38] LABS: Basophils Absolute Auto 0.1 10^3/uL (0.0-0.1); Basophils Percent Auto 0.7 % (0.2-2.0); Eosinophils Absolute Auto 0.2 10^3/uL (0.0-0.7); Eosinophils Percent Auto 2.5 % (0.9-7.0); Hematocrit 39.5 % (36.0-48.0); Hemoglobin 12.9 g/dL (12.0-16.0); Immature Granulocytes Abs Auto 0.02 10^3/uL (0.00-0.03); Immature Granulocytes Pct Auto 0.2 % (0.0-0.5); Lymphocytes Absolute Auto 2.4 10^3/uL (1.2-3.8); Mean Corpuscular HGB Conc 32.7 g/dL (29.9-35.2); Mean Corpuscular Hemoglobin 27.6 pg (26.7-34.0); Mean Corpuscular Volume 84.6 fL (81.0-99.0); Mean Platelet Volume 11.4 fL (9.5-13.5); Monocytes Absolute Auto 0.6 10^3/uL (0.3-0.8); Monocytes Percent Auto 7.8 % (1.7-12.0); Neutrophils Absolute Auto 4.7 10^3/uL (1.4-6.5); Neutrophils Percent Auto 58.8 % (43.0-75.0); Platelet Count 227 10^3/uL (150-450); Red Blood Count 4.67 10^6/uL (4.20-5.40); Red Cell Distribution Width 16.6 % (11.0-15.0); White Blood Count 8.1 10^3/uL (4.0-11.0)
[2024-03-14 10:47] LABS: Alanine Aminotransferase 52 U/L (14-59); Albumin Globulin Ratio 1.1; Albumin Level 3.6 g/dL (3.4-5.0); Alkaline Phosphatase 146 U/L (46-116); Anion Gap 13.2; Aspartate Amino Transferase 29 U/L (15-37); BUN Creatinine Ratio 15.1; Bilirubin Total 0.7 mg/dL (0.2-1.0); Calcium 9.7 mg/dL (8.5-10.1); Carbon Dioxide 28.9 mmol/L (21.0-32.0); Chloride 109 mmol/L (98-107); Chol HDL Ratio 2.4; Cholesterol 163 mg/dL (<=200); Estimated GFR (African America >60 (>=60 mL/min/1.73m^2); Estimated GFR (Non-African Ame 59 (>=60 mL/min/1.73m^2); Globulin 3.4 g/dL; Glucose 113 mg/dL (74-106); HDL Cholesterol 67 mg/dL (40-60); Potassium 4.1 mmol/L (3.5-5.1); Sodium 147 mmol/L (136-145); Thyroid Stimulating Hormone 1.145 uIU/mL (0.358-3.740); Triglycerides 111 mg/dL (<=150); VLDL CHOLESTEROL 22.2 mg/dL
== END 2024-03-14 09:23 | disposition home or self-care (01) ==
LOC: LAB 09:24
PROVIDERS: PCP Internal Medicine; Visit Provider Internal Medicine
DX: E78.00 Pure hypercholesterolemia, unspecified (principal); I10 Essential (primary) hypertension; R53.83 Other fatigue
CPT/HCPCS: 36415; 80053; 80061; 84443; 85025